=== PATIENT | female | born 1950 | race Caucasian/White ===

== ENCOUNTER 2019-01-30 05:38 | Day surgery (SDC) | payer MEDICARE, BC ==
[2019-01-29 09:00] VITALS: BMI 29.5
[2019-01-30] MEDS ORDERED: Phenylephrine 2.5% Ophth Soln 5 ML BOT ONE (05:59)
[2019-01-30] MEDS ORDERED: Cyclopentolate 1% Opth Drop 2 ML BOT ONE (05:59)
[2019-01-30] MEDS ORDERED: EPINEPHrine 0.3 MG, Dextrose 50% 3 ML in Ophthalmic Irrigation Solution 500 ML FS SCH (06:00)
[2019-01-30] MEDS ORDERED: Midazolam HCl 2 mg/2 ml Vial ONE (06:25)
[2019-01-30] MEDS ORDERED: Fentanyl 100 MCG/2 ML VIAL ONE (06:25)
[2019-01-30] MEDS ORDERED: Lidocaine 4% PF 5 ML AMP ONE (10:28)
[2019-01-30] MEDS ORDERED: Maxitrol 0.1% Opth Oint 3.5 GM TUBE ONE (10:28)
[2019-01-30] MEDS ORDERED: CEFAZOLIN 1 GM VIAL ONE (10:28)
[2019-01-30] MEDS ORDERED: PROPOFOL 200 MG/20 ML VIAL ONE (10:28)
[2019-01-30] MEDS ORDERED: Triamcinolone 40 MG/ML VIAL ONE (10:28)
[2019-01-30] MEDS ORDERED: Bupivacaine 0.75% 10 ML AMP ONE (10:28)
[2019-01-30] MEDS ORDERED: Lidocaine 1% PF 5 ML VIAL ONE (10:28)
[2019-01-30] MEDS ORDERED: Indocyanine Green 25 MG/10 ML VIAL ONE (10:28)
--- NOTE | 2019-01-30 10:38 | OP ---
DATE OF PROCEDURE: 01/30/2019 PREOPERATIVE DIAGNOSIS: Macular hole, right eye. POSTOPERATIVE DIAGNOSIS: Macular hole, right eye. PROCEDURE PERFORMED: Pars plana vitrectomy, internal limiting membrane peel, right eye. ANESTHESIA: Local with monitored anesthesia care. PROCEDURE IN DETAIL: The patient was identified in the preoperative holding area. Appropriate informed consent for planned surgical procedure on the right eye had been obtained. The patient was transported to the operative suite, where appropriate cardiopulmonary monitoring was established. Local anesthesia obtained using retrobulbar modified Van Lint lid block using 50:50 mixture of 4% lidocaine and 0.75% bupivacaine. The patient was prepped and draped in usual sterile manner for ophthalmic surgery on the right eye. A lid speculum was placed in the right eye. A 25-gauge trocar was placed through the conjunctivae and sclerae superotemporally, inferotemporally, and superonasally. Infusion line was placed inferotemporally. Light pipe vitreous cutter was inserted into the eye. Core vitrectomy was performed. Posterior hyaloid face was elevated using vacuum suction. Indocyanine green dye was infused on the posterior pole x1. Internal limiting membrane was elevated using membrane scraper and peeled across the macula in one piece. Indirect ophthalmoscopy was used to exam the retina 360 degrees. No holes, breaks, or tears were identified. Complete air-fluid exchange was performed with 10 minutes being left for fluid to drain posteriorly. A 28% sulfur hexafluoride gas was infused into the eye. Trocars were removed. The eye was noted to retain pressure well. Retrobulbar Kenalog and subconjunctival Ancef were placed. Antibiotic ointment was placed and the eye was patched and shielded. The patient was taken to the postoperative recovery unit in good condition, having suffered no immediate perioperative complications. The patient was instructed to keep patch and shield on, avoid lifting or bending. Followup appointment with Dr. Del Toro. Job ID: [id number]
== END 2019-01-30 08:56 | disposition home or self-care (01) ==
LOC: SDC 05:38
PROVIDERS: ATTEND Ophthalmology Retina Specialist
PROC: 08T43ZZ Resection of Right Vitreous, Percutaneous Approach (ICD-10-PCS; principal; 2019-01-30)
PROC: 08NE3ZZ Release Right Retina, Percutaneous Approach (ICD-10-PCS; 2019-01-30)
DX: H35.341 Macular cyst, hole, or pseudohole, right eye (principal); I10 Essential (primary) hypertension; I48.91 Unspecified atrial fibrillation; G47.30 Sleep apnea, unspecified; F17.200 Nicotine dependence, unspecified, uncomplicated; F32.9 Major depressive disorder, single episode, unspecified; F41.9 Anxiety disorder, unspecified; F43.10 Post-traumatic stress disorder, unspecified; Z79.01 Long term (current) use of anticoagulants; Z79.899 Other long term (current) drug therapy; Z88.0 Allergy status to penicillin; Z91.048 Other nonmedicinal substance allergy status; Z99.89 Dependence on other enabling machines and devices
CPT/HCPCS: 67025; J0171; J2250; J3010